=== PATIENT | female | born 1935 | race Caucasian/White ===

== ENCOUNTER → 2017-07-03 | Outpatient (CLI) | payer MEDICARE, MEDICAID | END | disposition home or self-care (01) | LOC: CARD 10:18 | PROVIDERS: ATTEND Psychiatry & Neurology Neurology | DX: G40.919 Epilepsy, unspecified, intractable, without status epilepticus (principal) ==

== ENCOUNTER 2022-06-05 17:08 | Inpatient (IN) | payer MEDICARE, MEDICAID ==
[~2022-06-05] VITALS: Ht 162.6 cm; Wt 93.9 kg
[2022-06-05 17:45] VITALS: BP 143/54
[2022-06-05 19:05] VITALS: BP 145/62
[2022-06-05 20:00] VITALS: BP 145/62
[2022-06-05] MEDS ORDERED: KEPP500 PO (20:39)
[2022-06-05] MEDS ORDERED: ABIL5 PO (20:39)
[2022-06-05] MEDS ORDERED: MEMA5TAB7 PO (20:39)
[2022-06-05] MEDS ORDERED: LISI20TA31 PO (20:39)
[2022-06-05] MEDS ORDERED: FURO-152 PO (20:39)
[2022-06-05] MEDS ORDERED: GUAIFENESIN 200MG/10ML SUGAR FREE UDC PO PRN (21:30)
[2022-06-05] MEDS ORDERED: ONDANSETRON HCL 4MG/2ML INJ IV PRN (21:30)
[2022-06-05] MEDS ORDERED: DOCUSATE SODIUM 100MG CAPSULE PO PRN (21:30)
[2022-06-05] MEDS ORDERED: TRAMADOL 50MG TABLET PO PRN (21:30)
[2022-06-05] MEDS ORDERED: MAGNESIUM/ALUMINUM HYDROXIDE/SIMETHICONE 30ML UDC PO PRN (21:30)
[2022-06-05] MEDS ORDERED: HYDROCODONE/ACETAMINOPHEN 5/325MG TABLET PO PRN (21:30)
[2022-06-05] MEDS ORDERED: ACETAMINOPHEN 325MG TABLET PO PRN (21:30)
[2022-06-05] MEDS ORDERED: VANCOMYCIN 1.25GM PMX (XELLIA) 250 ML IV NR (23:00)
[2022-06-06] VITALS: BP 126/57
[2022-06-06] MEDS: ARIPIPRAZOLE 5MG TABLET PO SCH ×2 (00:27→09:14)
[2022-06-06 04:00] VITALS: BP 138/64
[2022-06-06 07:16] LABS: BASOPHILS % 0.3 % (0.0-2.0); EOSINOPHILS % 3.2 % (0.0-5.0); HEMATOCRIT. 35.6 % (36.0-48.0); HEMOGLOBIN. 11.9 g/dL (12.0-16.0); LYMPHOCYTES % 37.1 % (20.0-50.0); MEAN CORPUSCULAR HEMOGLOBIN 29.2 pg (28.0-32.0); MEAN CORPUSCULAR VOLUME 87.1 fL (81.0-99.0); MEAN PLATELET VOLUME 7.8 fl (7.4-10.4); NEUTROPHILS % 54.4 % (40.0-76.0); PLATELET 245 x1000/uL (130-400); RED BLOOD CELL COUNT 4.09 mill/uL (4.2-5.4); RED CELL DISTRIBUTION WIDTH 14.7 % (11.6-14.6)
[2022-06-06 07:20] LABS: CHLORIDE 110 mEq/L (98-107)
[2022-06-06 07:40] LABS: HDL CHOLESTEROL 59 mg/dL (40-59); LDL CHOLESTEROL 115 mg/dL (5-100)
[2022-06-06 08:00] VITALS: BP 130/64
[2022-06-06] MEDS: AMLODIPINE 10MG TABLET PO SCH (09:14)
[2022-06-06] MEDS: LEVETIRACETAM 500MG TABLET PO SCH ×2 (09:14→20:32)
[2022-06-06] MEDS: ENOXAPARIN 40MG/0.4ML SYR SUBCUT SCH (09:16)
[2022-06-06 09:24] LABS: PROTHROMBIN TIME 10.4 sec (9.6-11.0)
[2022-06-06 12:00] VITALS: BP 123/50
[2022-06-06 16:00] VITALS: BP 147/69
[2022-06-06 20:00] VITALS: BP 153/72
[2022-06-06] MEDS: VANCOMYCIN 1GM PMX (XELLIA) 200 ML IV SCH (20:32)
[2022-06-07] VITALS: BP 132/65
[2022-06-07 04:00] VITALS: BP 116/47
[2022-06-07 06:43] LABS: HEMATOCRIT 37.6 % (36.0-48.0); HEMOGLOBIN 12.5 g/dL (12.0-16.0); MEAN CORPUSCULAR HEMOGLOBIN 29.2 pg (28.0-32.0); MEAN CORPUSCULAR VOLUME 87.5 fL (81.0-99.0); PLATELET 254 x1000/uL (130-400); RED CELL DISTRIBUTION WIDTH 14.5 % (11.6-14.6)
[2022-06-07 06:46] LABS: CHLORIDE 106 mEq/L (98-107)
[2022-06-07 08:25] VITALS: BP 126/58
[2022-06-07] MEDS: LEVETIRACETAM 500MG TABLET PO SCH ×2 (09:42→20:29)
[2022-06-07] MEDS: AMLODIPINE 10MG TABLET PO SCH (09:42)
[2022-06-07] MEDS: ENOXAPARIN 40MG/0.4ML SYR SUBCUT SCH (09:42)
[2022-06-07] MEDS: ARIPIPRAZOLE 5MG TABLET PO SCH (09:42)
[2022-06-07] MEDS: CLINDAMYCIN 600 MG PREMIX 50 ML IV SCH ×3 (12:00→20:29)
[2022-06-07 12:45] VITALS: BP 130/54
[2022-06-07] MEDS: MEMANTINE HCL 5MG TABLET PO SCH ×2 (13:00→17:17)
[2022-06-07] MEDS: FUROSEMIDE 20MG TABLET PO SCH (13:00)
[2022-06-07 16:00] VITALS: BP 122/46
[2022-06-07] MEDS ORDERED: PNEUMOCOCCAL 23-VAL P-SAC VAC 0.5 ML IM ONE (16:30)
[2022-06-07 17:29] LABS: CLARITY URINE CLOUDY (CLEAR); COLOR URINE YELLOW (YELLOW); KETONES URINE NEGATIVE (NEGATIVE); LEUKOCYTE ESTERASE URINE 3+ (NEGATIVE); NITRITE URINE POSITIVE (NEGATIVE); OCCULT BLOOD URINE TRACE (NEGATIVE); PH URINE 5.5 (4.5-8.0); PROTEIN URINE TRACE (NEGATIVE); SPECIFIC GRAVITY URINE 1.011 (1.005-1.030); UROBILINOGEN URINE 0.2 E.U./dL (0.2-1.0)
[2022-06-07 20:00] VITALS: BP 126/55
[2022-06-07] MEDS: VANCOMYCIN 1GM PMX (XELLIA) 200 ML IV SCH (20:29)
[2022-06-08] VITALS: BP 125/54
[2022-06-08 04:00] VITALS: BP 113/41
[2022-06-08 06:34] LABS: HEMATOCRIT 32.2 % (36.0-48.0); HEMOGLOBIN 10.6 g/dL (12.0-16.0); MEAN CORPUSCULAR HEMOGLOBIN 28.8 pg (28.0-32.0); MEAN CORPUSCULAR VOLUME 87.3 fL (81.0-99.0); PLATELET 224 x1000/uL (130-400); RED BLOOD CELL COUNT 3.69 mill/uL (4.2-5.4); RED CELL DISTRIBUTION WIDTH 14.5 % (11.6-14.6)
[2022-06-08] MEDS: CLINDAMYCIN 600 MG PREMIX 50 ML IV SCH ×3 (06:36→21:31)
[2022-06-08 08:00] VITALS: BP 102/50
[2022-06-08] MEDS ORDERED: LIDOCAINE HCL/PF 1% 10 MG/ML 5ML VIAL ONE (08:41)
[2022-06-08] MEDS: AMLODIPINE 10MG TABLET PO SCH (09:00)
[2022-06-08] MEDS: ARIPIPRAZOLE 5MG TABLET PO SCH (09:56)
[2022-06-08] MEDS: MEMANTINE HCL 5MG TABLET PO SCH ×2 (09:56→16:29)
[2022-06-08] MEDS: LEVETIRACETAM 500MG TABLET PO SCH ×2 (09:56→21:31)
[2022-06-08] MEDS: FUROSEMIDE 20MG TABLET PO SCH (09:56)
[2022-06-08] MEDS: ENOXAPARIN 40MG/0.4ML SYR SUBCUT SCH (09:56)
[2022-06-08 12:30] VITALS: BP 120/51
[2022-06-08] MEDS: VANCOMYCIN 1250MG in DEXTROSE 5% WATER 250ML IV SCH (13:58)
[2022-06-08 16:30] VITALS: BP 133/54
[2022-06-08 20:00] VITALS: BP 111/48
[2022-06-09] VITALS: BP 119/48
[2022-06-09 04:00] VITALS: BP 105/49
[2022-06-09] MEDS: CLINDAMYCIN 600 MG PREMIX 50 ML IV SCH ×3 (05:16→23:47)
[2022-06-09] MEDS: VANCOMYCIN 1GM PMX (XELLIA) 200 ML IV SCH (06:15)
[2022-06-09] MEDS: VANCOMYCIN 1250MG in DEXTROSE 5% WATER 250ML IV SCH (06:20)
[2022-06-09 08:00] VITALS: BP 107/49
[2022-06-09] MEDS: AMLODIPINE 10MG TABLET PO SCH (09:00)
[2022-06-09 09:02] LABS: HEMATOCRIT 33.6 % (36.0-48.0); HEMOGLOBIN 11.2 g/dL (12.0-16.0); MEAN CORPUSCULAR HEMOGLOBIN 29.1 pg (28.0-32.0); MEAN CORPUSCULAR VOLUME 87.3 fL (81.0-99.0); PLATELET 221 x1000/uL (130-400); RED BLOOD CELL COUNT 3.85 mill/uL (4.2-5.4); RED CELL DISTRIBUTION WIDTH 14.8 % (11.6-14.6)
[2022-06-09] MEDS: ARIPIPRAZOLE 5MG TABLET PO SCH (09:04)
[2022-06-09] MEDS: LEVETIRACETAM 500MG TABLET PO SCH ×2 (09:04→21:00)
[2022-06-09] MEDS: FUROSEMIDE 20MG TABLET PO SCH (09:04)
[2022-06-09] MEDS: MEMANTINE HCL 5MG TABLET PO SCH ×2 (09:04→18:11)
[2022-06-09] MEDS: ENOXAPARIN 40MG/0.4ML SYR SUBCUT SCH (09:04)
[2022-06-09 12:30] VITALS: BP 154/69
[2022-06-09] MEDS ORDERED: ENOXAPARIN 30MG/0.3ML SYR SUBCUT SCH (13:48)
[2022-06-09 16:00] VITALS: BP 142/42
[2022-06-09] MEDS ORDERED: NALOXONE HCL 0.4MG/ML VIAL IV PRN (16:45)
[2022-06-09 20:00] VITALS: BP 107/52
[2022-06-09] MEDS ORDERED: ATORVASTATIN CALCIUM 40MG TABLET PO SCH (21:00)
[2022-06-10] VITALS: BP 128/47
[2022-06-10] MEDS: AZTREONAM 2 GM in DEXT 5% WATER 100 ML IV SCH ×2 (02:27→09:50)
[2022-06-10 04:00] VITALS: BP 148/61
[2022-06-10] MEDS ORDERED: LINEZOLID 600MG TABLET PO SCH (06:00)
[2022-06-10 08:00] VITALS: BP 138/60
[2022-06-10] MEDS ORDERED: FUROSEMIDE 40MG TABLET PO SCH (09:00)
[2022-06-10] MEDS: MEMANTINE HCL 5MG TABLET PO SCH (09:37)
[2022-06-10] MEDS: LEVETIRACETAM 500MG TABLET PO SCH (09:37)
[2022-06-10] MEDS: ARIPIPRAZOLE 5MG TABLET PO SCH (09:38)
[2022-06-10] MEDS: AMLODIPINE 10MG TABLET PO SCH (09:38)
[2022-06-10 12:00] VITALS: BP 152/66
[2022-06-10 14:05] VITALS: BP 152/66
[2022-06-11] MEDS ORDERED: ENOXAPARIN 40MG/0.4ML SYR SUBCUT SCH (09:00)
== END 2022-06-10 14:37 | DRG 872 ==
LOC: 6WST 17:08 → 6EST 06-09 16:34
PROVIDERS: ADMIT Psychiatry & Neurology Neurology; ATTEND Hospitalist
PROC: 4A00X4Z Measurement of Central Nervous Electrical Activity, External Approach (ICD-10-PCS; 2022-06-06)
PROC: 02HV33Z Insertion of Infusion Device into Superior Vena Cava, Percutaneous Approach (ICD-10-PCS; principal; 2022-06-08)
PROC: B5181ZA Fluoroscopy of Superior Vena Cava using Low Osmolar Contrast, Guidance (ICD-10-PCS; 2022-06-08)
PROC: B548ZZA Ultrasonography of Superior Vena Cava, Guidance (ICD-10-PCS; 2022-06-08)
DX: A41.9 Sepsis, unspecified organism (principal); L03.116 Cellulitis of left lower limb; G93.40 Encephalopathy, unspecified; N39.0 Urinary tract infection, site not specified; F05 Delirium due to known physiological condition; L03.115 Cellulitis of right lower limb; Z20.822 Contact with and (suspected) exposure to COVID-19; I87.8 Other specified disorders of veins; E66.01 Morbid (severe) obesity due to excess calories; F03.90 Unspecified dementia, unspecified severity, without behavioral disturbance, psychotic disturbance, mood disturbance, and anxiety; E78.5 Hyperlipidemia, unspecified; D64.9 Anemia, unspecified; G40.909 Epilepsy, unspecified, not intractable, without status epilepticus; R62.7 Adult failure to thrive; I10 Essential (primary) hypertension; Z68.35 Body mass index [BMI] 35.0-35.9, adult; Z91.19 Patient's noncompliance with other medical treatment and regimen; Z66 Do not resuscitate
CPT/HCPCS: 36415; 36573; 71045; 80048; 80053; 80061; 80202; 81003; 82607; 82746; 83735; 84100; 84439; 84443; 85025; 85027; 87077; 87186; 87426; 90732; 93005; 93923; 93970; 95816; 97161; 97162; C1725; J1650; J3370; J3490; J7060